=== PATIENT | male | born 1980 ===

== ENCOUNTER 2017-11-26 02:38 | Emergency (ER) | payer SELFPAY ==
[2017-11-26 02:58] VITALS: BP 112/48; PULSE 70; RESP 16; TEMP 97.7; O2SAT 98
--- NOTE | 2017-11-26 03:23 | ED PDOC ---
HPI: Psych/Substance Abuse Time Seen by Provider: 11/26/17 02:49 Chief Complaint (Nursing): Alcohol Ingestion Chief Complaint (Provider): Alcohol Ingestion ED Caveat: Intoxicated History Per: Patient Onset/Duration Of Symptoms: Hrs Additional Complaint(s): 37 y/o male is brought to the ED by [facility] for alcohol intoxication. Patient reports that he was drinking earlier in the day and drank about 9 beverages. When he was waiting at the bus stop, he fell asleep on the street which prompted EMS to bring him to ED for evaluation. Patient states that he called his brother upon arrival to ED for transport home and denies any physical complaints at this time. Denies nausea, vomiting, recent fever, headache, abdominal pain, chest pain, or changes in vision. Past Medical History Reviewed: Historical Data, Nursing Documentation, Vital Signs Vital Signs: Last Vital Signs Temp 97.7 F 11/26/17 02:56 Pulse 70 11/26/17 02:56 Resp 16 11/26/17 02:56 BP 112/48 L 11/26/17 02:56 Pulse Ox 98 11/26/17 02:56 - Medical History PMH: No Chronic Diseases - Surgical History Surgical History: No Surg Hx - Family History Family History: States: Unknown Family Hx - Social History Current smoker - smoking cessation education provided: Yes (Light smoker <10 cigarettes daily) Alcohol: Social Drugs: Denies - Allergies Allergies/Adverse Reactions: Allergies Allergy/AdvReac Type Severity Reaction Status Date / Time No Known Allergies Allergy Verified 11/26/17 02:56 Review of Systems ROS Statement: Except As Marked, All Systems Reviewed And Found Negative (As per HPI, otherwise negative) Constitutional: Negative for: Fever Gastrointestinal: Negative for: Nausea, Vomiting, Abdominal Pain Neurological: Positive for: Other (Alcohol Intoxication). Negative for: Headache Physical Exam - Reviewed Nursing Documentation Reviewed: Yes Vital Signs Reviewed: Yes - Physical Exam Appears: Positive for: Non-toxic, No Acute Distress Head Exam: Positive for: ATRAUMATIC, NORMOCEPHALIC Skin: Positive for: Normal Color, Warm, Dry Eye Exam: Positive for: EOMI, PERRL ENT: Positive for: Normal ENT Inspection Neck: Positive for: Painless ROM, Supple Cardiovascular/Chest: Positive for: Regular Rate, Rhythm Respiratory: Positive for: Normal Breath Sounds. Negative for: Decreased Breath Sounds, Accessory Muscle Use, Respiratory Distress Gastrointestinal/Abdominal: Positive for: Soft. Negative for: Tenderness, Distended, Guarding, Rebound Extremity: Positive for: Normal ROM. Negative for: Deformity Neurologic/Psych: Positive for: Alert, Oriented (x3), Gait (steady in ED). Negative for: Aphasia, Facial Droop - ECG O2 Sat by Pulse Oximetry: 98 (RA) Pulse Ox Interpretation: Normal Medical Decision Making Medical Decision Making: Time: 03:15 Initial Impression: Alcohol Intoxication 0345 Patient's sister in law (Maryann Austin- [phone]) at bedside. Patient states he lives with his sister in law and brother. Sister in law is willing to bring the patient home at this time. Patient is alert and oriented x3, ambulatory in ED with a steady, unassisted gait. On exam, patient in no acute distress. Lungs clear to auscultation, cardiac RRR, abdomen soft, non-tender, repeat neuro exam shows no focal findings. Based on history, exam and diagnostic results, plan will be for outpatient follow up. Stable for discharge. Patient instructed to follow-up with pmd / the clinic in 1-2 days without fail. Return to the emergency room at any time for any new or worsening symptoms. Patient states he fully agrees with and understands discharge instructions. States that he agrees with the plan and disposition. Verbalized and repeated discharge instructions and plan. I have given the patient opportunity to ask any additional questions. Scribe Attestation: Documented by Julio Tucker acting as a scribe for DAYO Hanson. Scribmoe Attestation: All medical record entries made by the Scribe were at my direction and personally dictated by me. I have reviewed the chart and agree that the record accurately reflects my personal performance of the history, physical exam, medical decision making, and the department course for this patient. I have also personally directed, reviewed, and agree with the discharge instructions and disposition. Disposition - Clinical Impression Clinical Impression: Alcohol intoxication - Patient ED Disposition Is Patient to be Admitted: No Counseled Patient/Family Regarding: Diagnosis, Need For Followup - Disposition Referrals: [facility] [place] [Outside] Disposition: Routine/Home Disposition Time: 03:49 Condition: FAIR Instructions: Alcohol Abuse and Alcoholism (DC), Effects of Alcohol on Your Health Forms: [facility] [employer] [facility] ([place]an) Print Language: FAROESE - POA Present On Arrival: None
== END 2017-11-26 03:58 | disposition home or self-care (01) ==
LOC: H.ER 02:38
DX: F10.129 Alcohol abuse with intoxication, unspecified (principal)